=== PATIENT | male | born 1995 | race African-American/Black ===

== ENCOUNTER 2023-02-21 13:04 | Observation (INO) ==
[2023-02-21] MEDS ORDERED: NS 0.9% 1000 ml BAG 1,000 ML IV ONE (13:32)
[2023-02-21 14:09] LABS: ABS Lymphocytes 2.1 10^3/uL (1.0-4.8); ABS Monocytes 0.6 10^3/uL (0.0-1.1); ABS Nucleated RBC 0.03 10^3/ul; Hematocrit 45.7 % (38-53); Hemoglobin 15.5 g/dL (13.2-16.3); Lymphocyte % 21.8 %; Mean Corpuscular Hemoglobin 31.9 pg (27-33); Mean Corpuscular Volume 93.9 fL (80-97); Mean Platelet Volume 8.8 fL (7.5-11.2); Nucleated Red Blood Cells % 0.3 %/100WBC (0.0-0.8); Platelet Count 149 10^3/uL (150-450); Red Blood Count 4.86 10^6/uL (4.06-5.63); Red Cell Distribution Width 13.5 % (12-17); White Blood Count 9.7 10^3/uL (3.6-10.2)
[2023-02-21 14:15] LABS: PCO2 Arterial 44 mmHg (35-45); PO2 Arterial 118 mmHg (80-100)
[2023-02-21 14:53] LABS: ALT 141 U/L (7-52); Albumin 3.7 g/dL (3.2-5.2); Albumin/Globulin Ratio 1.5 (1-3); Alkaline Phosphatase 64 U/L (35-149); Anion Gap 6 mmol/L (2-16); Blood Urea Nitrogen 44 mg/dL (6-24); CO2 Carbon Dioxide 25 mmol/L (22-32); Calcium 8.4 mg/dL (8.6-10.3); Chloride 104 mmol/L (101-111); Creatine Kinase 908 U/L (10-223); Creatinine, Serum 1.01 mg/dL (0.67-1.17); Globulin 2.5 g/dL (2-4); Glucose 82 mg/dL (70-100); Magnesium 2.1 mg/dL (1.9-2.7); Sodium 135 mmol/L (135-145); Total Bilirubin 0.7 mg/dL (0.2-1.0); Total Protein 6.2 g/dL (6.4-8.9); eGFR CKD-EPI 105.8 (>60)
[2023-02-21 16:44] LABS: Urine Appearance Clear; Urine Bilirubin Negative (Negative); Urine Blood Negative (Negative); Urine Color Yellow; Urine Glucose Negative (Negative); Urine Ketones Negative (Negative); Urine Nitrite Negative (Negative); Urine Protein Negative (Negative); Urine Specific Gravity 1.031 (1.002-1.030); Urine Urobilinogen Negative (Negative)
[2023-02-21] MEDS ORDERED: Lorazepam PYXIS KEY PRN ×2 (16:53→17:27)
[2023-02-21] MEDS ORDERED: LORazepam 2 mg VIAL 1 ml IV PUSH ONE (16:53)
[2023-02-21 18:08] LABS: C Reactive Protein < 1.00 mg/L (<8.01)
[2023-02-21 18:29] LABS: Albumin 3.4 g/dL (3.2-5.2); Albumin/Globulin Ratio 1.5 (1-3); Calcium 8.2 mg/dL (8.6-10.3); Creatinine, Serum 0.86 mg/dL (0.67-1.17); Globulin 2.2 g/dL (2-4); Potassium 3.9 mmol/L (3.5-5.0); Total Bilirubin 0.7 mg/dL (0.2-1.0); Total Protein 5.6 g/dL (6.4-8.9); eGFR CKD-EPI 123.2 (>60)
[2023-02-21 19:01] LABS: Alcohol, S < 13 mg/dL (<13)
[2023-02-21 19:41] LABS: Urine Benzodiazepine Screen Presumptive Positive (None Detect); Urine Cannabinoids Screen None Detected (None Detect); Urine Opiates Screen None Detected (None Detect)
[2023-02-21 21:25] LABS: TSH Ultra Thyroid Stim Horm 3.02 mcIU/mL (0.34-5.60)
[2023-02-21 22:39] LABS: Urine Buprenorphine Screen None Detected (None Detect); Urine Fentanyl Screen None Detected (None Detect)
[2023-02-21] MEDS: LORazepam 2 mg VIAL 1 ml IV PUSH PRN (23:02)
[2023-02-22] MEDS: LORazepam 2 mg VIAL 1 ml IV PUSH PRN ×3 (03:21→17:19)
[2023-02-22] MEDS ORDERED: Lactulose 30 ml UDC PO ONE (07:07)
[2023-02-22 12:07] LABS: ABS Lymphocytes 2.3 10^3/uL (1.0-4.8); ABS Monocytes 0.7 10^3/uL (0.0-1.1); ABS Neutrophils 6.9 10^3/uL (1.5-7.6); ABS Nucleated RBC 0.02 10^3/ul; Eosinophil % 0.4 %; Hematocrit 49.3 % (38-53); Hemoglobin 16.6 g/dL (13.2-16.3); Lymphocyte % 23.4 %; Mean Corpuscular Hemoglobin 31.5 pg (27-33); Mean Corpuscular Hgb Conc 33.7 g/dL (31-36); Mean Corpuscular Volume 93.6 fL (80-97); Nucleated Red Blood Cells % 0.2 %/100WBC (0.0-0.8); Platelet Count 165 10^3/uL (150-450); Red Blood Count 5.27 10^6/uL (4.06-5.63); Red Cell Distribution Width 13.5 % (12-17)
[2023-02-22 12:45] LABS: ALT 154 U/L (7-52); Albumin 3.7 g/dL (3.2-5.2); Albumin/Globulin Ratio 1.4 (1-3); Alkaline Phosphatase 75 U/L (35-149); Anion Gap 7 mmol/L (2-16); Blood Urea Nitrogen 30 mg/dL (6-24); CO2 Carbon Dioxide 26 mmol/L (22-32); Calcium 8.6 mg/dL (8.6-10.3); Chloride 102 mmol/L (101-111); Creatine Kinase 783 U/L (10-223); Creatinine, Serum 0.88 mg/dL (0.67-1.17); Globulin 2.7 g/dL (2-4); Glucose 75 mg/dL (70-100); Sodium 135 mmol/L (135-145); Total Bilirubin 0.6 mg/dL (0.2-1.0); Total Protein 6.4 g/dL (6.4-8.9); eGFR CKD-EPI 122.4 (>60)
[2023-02-22] MEDS: Lactulose 30 ml UDC PO SCH ×2 (17:19→21:57)
[2023-02-22] MEDS ORDERED: Lorazepam PYXIS KEY PRN (17:34)
[2023-02-22] MEDS ORDERED: LORazepam 2 mg VIAL 1 ml IV PUSH ONE (17:34)
[2023-02-22 18:22] LABS: Valproic Acid < 10.0 mcg/mL (50-100)
[2023-02-23] MEDS: LORazepam 2 mg VIAL 1 ml IV PUSH PRN ×4 (04:03→21:31)
[2023-02-23 06:20] LABS: Albumin 3.7 g/dL (3.2-5.2); Albumin/Globulin Ratio 1.5 (1-3); Calcium 8.4 mg/dL (8.6-10.3); Creatinine, Serum 0.84 mg/dL (0.67-1.17); Globulin 2.4 g/dL (2-4); Total Bilirubin 0.4 mg/dL (0.2-1.0); Total Protein 6.1 g/dL (6.4-8.9); eGFR CKD-EPI 124.1 (>60)
[2023-02-23] MEDS: Lactulose 30 ml UDC PO SCH ×3 (09:32→21:31)
[2023-02-23 09:46] LABS: INR 1.04 (0.83-1.13)
[2023-02-23 10:47] LABS: Hepatitis B Surface Antigen Nonreactive (Nonreactive)
[2023-02-23] MEDS ORDERED: Lactated Ringers 1000 ml BAG 1,000 ML IV ONE ×2 (10:48→10:50)
[2023-02-23 10:52] LABS: Hepatitis A Ab IgM Negative (Negative)
[2023-02-23 10:53] LABS: Hepatitis B Core IgM Nonreactive (Nonreactive)
[2023-02-23 11:05] LABS: Hepatitis C Antibody Negative (Negative)
[2023-02-24] MEDS: LORazepam 2 mg VIAL 1 ml IV PUSH PRN (04:03)
[2023-02-24 07:38] LABS: ALT 136 U/L (7-52); Albumin 3.8 g/dL (3.2-5.2); Albumin/Globulin Ratio 1.5 (1-3); Alkaline Phosphatase 122 U/L (35-149); Anion Gap 5 mmol/L (2-16); Blood Urea Nitrogen 23 mg/dL (6-24); CO2 Carbon Dioxide 26 mmol/L (22-32); Calcium 8.7 mg/dL (8.6-10.3); Chloride 106 mmol/L (101-111); Creatine Kinase 595 U/L (10-223); Creatinine, Serum 0.75 mg/dL (0.67-1.17); Globulin 2.6 g/dL (2-4); Glucose 96 mg/dL (70-100); Sodium 137 mmol/L (135-145); Total Bilirubin 0.3 mg/dL (0.2-1.0); Total Protein 6.4 g/dL (6.4-8.9); eGFR CKD-EPI 128.4 (>60)
[2023-02-24] MEDS: Lactulose 30 ml UDC PO SCH ×3 (08:41→19:30)
[2023-02-24 08:48] LABS: Potassium, Whole Blood 4.1 mmol/L (3.4-4.5)
[2023-02-24] MEDS ORDERED: LORazepam 2 mg VIAL 1 ml IM ONE (20:42)
[2023-02-25] MEDS: Lactulose 30 ml UDC PO SCH (08:16)
[2023-02-25 09:59] LABS: Albumin 3.8 g/dL (3.2-5.2); Albumin/Globulin Ratio 1.5 (1-3); Creatinine, Serum 0.59 mg/dL (0.67-1.17); Globulin 2.6 g/dL (2-4); Potassium 4.2 mmol/L (3.5-5.0); Total Bilirubin 0.5 mg/dL (0.2-1.0); Total Protein 6.4 g/dL (6.4-8.9); eGFR CKD-EPI 138.1 (>60)
[2023-02-25 10:18] LABS: Hematocrit 49.7 % (38-53); Hemoglobin 16.7 g/dL (13.2-16.3); Mean Corpuscular Hemoglobin 31.5 pg (27-33); Mean Corpuscular Hgb Conc 33.5 g/dL (31-36); Mean Platelet Volume 9.7 fL (7.5-11.2); Platelet Count 135 10^3/uL (150-450); Red Blood Count 5.28 10^6/uL (4.06-5.63); Red Cell Distribution Width 13.9 % (12-17)
[2023-02-25 10:33] LABS: ABS Basophils 0.1 10^3/uL (0.0-0.1); ABS Monocytes 0.5 10^3/uL (0.0-1.1); ABS Neutrophils 6.3 10^3/uL (1.5-7.6); ABS Nucleated RBC 0.02 10^3/ul; Eosinophil % 0.4 %; Lymphocyte % 22.5 %; Nucleated Red Blood Cells % 0.3 %/100WBC (0.0-0.8)
[2023-02-25 10:37] VITALS: BP 125/60
== END 2023-02-25 14:40 ==
LOC: EDHOLD 13:04 → ED 13:04 → MEDTELE 23:44
PROVIDERS: ADMIT Hospitalist; ATTEND Hospitalist